=== PATIENT | female | born 1965 | race Two or more races ===

== ENCOUNTER 2018-06-28 13:43 | Day surgery (SDC) | payer BC ==
[2018-06-28] MEDS ORDERED: FENTAnyl 50 MCG/ML VIAL (16:49)
[2018-06-28] MEDS ORDERED: PROPOFOL 20 ML (16:49)
== END 2018-06-28 18:18 | disposition home or self-care (01) ==
LOC: GIL 13:43
DX: Z12.11 Encounter for screening for malignant neoplasm of colon (principal)
CPT/HCPCS: J3010